=== PATIENT | male | born 1940 | race Caucasian/White ===

== ENCOUNTER → 2016-08-27 | Outpatient (CLI) | payer OTHER ==
--- NOTE | 2016-08-27 17:05 | DX ---
DEXA Bone Mineral Densitometry Indication: 75-year-old man with personal history of low bone mineral density and thyroid dysfunctio n. Surveillance. Comparison: April 25, 2015 Technique: Bone Mineral Densitometry (BMD) by Dual Energy X-Ray Absorptiometry (DEXA) was performed utilizing the [employer] scanner. The lumbar spine was evaluated in the AP projection. The bilate ral hips and left forearm were evaluated in the AP projection. Vertebral fracture assessment was also performed. Findings: AP Lumbar Spine: The L1, L2, L3 and L4 vertebral bodies were evaluated. BMD: 1.136 gm/cm2 T-score: -0.8 SD Z-score: 0 SD No change AP Left Hip: Total BMD: 0.807 gm/cm2 T-score: -2 SD Z-score: -1 SD No change AP Right Hip: Total BMD: 0.818 gm/cm2 T-score: -2 SD Z-score: -1 SD No change AP Left Forearm, 07/23: BMD: 0.899 gm/cm2 T-score: -0.9 SD Z-score: 0 SD No change Vertebral Fracture Assessment: No significant fracture deformity. No prevertebral aortic calcificati on, significant marginal bone spurring, facet arthrosis, or intrinsic vertebral body sclerosis that would affect the accuracy of the lumbar spine BMD measurement. Conclusion: Considering the lowest measured site (bilateral hips), the patient's low bone mineral den sity has not changed since 2014. The ten year risk for any major osteoporotic fracture is 8% and for a hip fracture is 2.6%. Any bone loss in this patient is probably related to aging or testosterone de ficiency. Most common iatrogenic etiology for bone demineralization is over treatment of thyroid dysf unction. Recommendations: To prevent osteoporosis and to promote bone density, consider the following recomme ndations: 1. Pursue a regular regimen of weightbearing and muscle-strengthening exercises in order to reduce t he risk of falls and fracture (as tolerated by the patient's general medical condition). 2. Ensure that total daily dietary calcium intake is maximized. 3. Check serum hydroxy vitamin D3 (normal >30ng/ml). 4. Ensure daily intake of vitamin D is 800 international units. 5. Consider follow up DEXA scan in two years to assess the rate of bone loss in this patient. 6. Consider excluding common secondary causes of bone loss. Laboratory evaluation might include CBC , TSH, calcium, phosphorous, albumin, creatinine, alkaline phosphatase, PTH, serum, electrophoresis ( SPEP or UPEP), antitissue transglutaminase antibody levels (celiac disease), and hydroxy vitamin D3, as well as a 24-hour urine calcium.
== END ==
LOC: BRMIMAGING 14:52
PROVIDERS: ATTEND Family Medicine
DX: M85.88 Other specified disorders of bone density and structure, other site (principal); E07.9 Disorder of thyroid, unspecified

== ENCOUNTER → 2018-04-16 | Outpatient (CLI) | payer OTHER, BC | LOC: BRMIMAGING 08:28 | PROVIDERS: ATTEND Family Medicine | DX: Z13.820 Encounter for screening for osteoporosis (principal); M85.89 Other specified disorders of bone density and structure, multiple sites ==